=== PATIENT | female | born 1990 | race Two or more races ===

== ENCOUNTER 2016-05-01 01:19 | Emergency (ER) | payer OTHER ==
[2016-05-01 01:38] VITALS: BP 111/67; PULSE 72; TEMP 98.2; BMI 23.8
[2016-05-01 01:38] LABS: URINE APPEARANCE CLEAR; URINE BILIRUBIN NEGATIVE (NEGATIVE); URINE BLOOD NEGATIVE (NEGATIVE); URINE COLOR LTYELLOW; URINE GLUCOSE (UA) NEGATIVE (NEGATIVE); URINE KETONE NEGATIVE (NEGATIVE); URINE LEUK ESTERASE NEGATIVE (NEGATIVE); URINE NITRITE NEGATIVE (NEGATIVE); URINE PROTEIN NEGATIVE (NEGATIVE); URINE UROBILINOGEN 2.0 E.U/dl E.U./dl (0.2-1.0)
--- NOTE | 2016-05-01 02:12 | PDOC ---
History of Present Illness - General Chief Complaint: Injury Stated Complaint: FALL, BACK PAIN Time Seen by Provider: 05/01/16 01:31 History Source: Patient Exam Limitations: No Limitations - History of Present Illness Occurred: reports: this afternoon Pain Location: reports: none Method of Injury: Yes: fall Modifying Factors: improves with: rest Loss of Consciousness: no loss of consciousness Past History - Travel Traveled outside of the country in the last 30 days: No Close contact w/someone who was outside of country & ill: No - Past Medical History Allergies/Adverse Reactions: Allergies Allergy/AdvReac Type Severity Reaction Status Date / Time coconut oil Allergy Swelling Verified 05/01/16 01:30 No Known Drug Allergies Allergy Verified 05/01/16 01:30 Home Medications: Ambulatory Orders NK [No Known Home Medication] 01/11/16 Asthma: No Cancer: No Cardiac Disorders: No Diabetes: No HTN: No Seizures: No Thyroid Disease: No - Psycho/Social/Smoking Cessation Hx Anxiety: No Suicidal Ideation: No Smoking Status: No Smoking History: Never smoked Have you smoked in the past 12 months: No Number of Cigarettes Smoked Daily: 0 Hx Alcohol Use: No Drug/Substance Use Hx: No Substance Use Type: None Hx Substance Use Treatment: No Trauma Specific PMHX - Complaint Specific PMHX Back Injury: No Neck Injury: No Review of Systems - Review of Systems Able to Perform ROS?: Yes Comments:: 05/01/16 02:08 CONSTITUTIONAL: Absent: fever, chills, diaphoresis, generalized weakness, malaise, loss of appetite HEENT: Absent: rhinorrhea, nasal congestion, throat pain, throat swelling, difficulty swallowing, mouth swelling, ear pain, eye pain, visual Changes CARDIOVASCULAR: Absent: chest pain, loss of consciousness, palpitations, irregular heart rate, peripheral edema RESPIRATORY: Absent: cough, shortness of breath, dyspnea with exertion, orthopnea, wheezing, stridor, hemoptysis GASTROINTESTINAL: Absent: abdominal pain, abdominal distension, nausea, vomiting, diarrhea, constipation, melena, hematochezia GENITOURINARY: Absent: dysuria, frequency, urgency, hesitancy, hematuria, flank pain, genital pain MUSCULOSKELETAL: Left buttock pain Absent: myalgia, arthralgia, joint swelling SKIN: Absent: rash, itching, pallor HEMATOLOGIC/IMMUNOLOGIC: Absent: easy bleeding, easy bruising, lymphadenopathy, frequent infections ENDOCRINE: Absent: unexplained weight gain, unexplained weight loss, heat intolerance, cold intolerance NEUROLOGIC: Absent: headache, focal weakness or paresthesias, dizziness, unsteady gait, seizure, mental status changes, bladder or bowel incontinence PSYCHIATRIC: Absent: anxiety, depression, suicidal or homicidal ideation, hallucinations. Is the patient limited Polish proficient: No *Physical Exam - Vital Signs Last Vital Signs Temp Pulse Resp BP Pulse Ox 98.2 F 72 18 111/67 100 05/01/16 01:28 05/01/16 01:28 05/01/16 01:28 05/01/16 01:05/01/16 01:28 - Physical Exam Comments: 05/01/16 02:09 GENERAL: Well developed, well nourished. Awake and alert. No acute distress. HEENT: Normocephalic, atraumatic. PERRLA, EOMI. No conjunctival pallor. Sclera are non- icteric. Moist mucous membranes. Oropharynx is clear. NECK: Supple. Full ROM. No JVD. Carotid pulses 2+ and symmetric, without bruits. No thyromegaly. No lymphadenopathy. CARDIOVASCULAR: Regular rate and rhythm. No murmurs, rubs, or gallops. Distal pulses are 2+ and symmetric. PULMONARY: No evidence of respiratory distress. Lungs clear to auscultation bilaterally. No wheezing, rales or rhonchi. ABDOMINAL: Soft. Non-tender. Non-distended. No rebound or guarding. No organomegaly. Normoactive bowel sounds. MUSCULOSKELETAL Normal range of motion at all joints. No bony deformities or tenderness. No CVA tenderness. EXTREMITIES: No cyanosis. No clubbing. No edema. No calf tenderness. SKIN: Warm and dry. Normal capillary refill. No rashes. No jaundice. NEUROLOGICAL: Alert, awake, appropriate. Cranial nerves 2-12 intact. No deficits to light touch and temperature in face, upper extremities and lower extremities. No motor deficits in the in face, upper extremities and lower extremities. Normoreflexic in the upper and lower extremities. Normal speech. Toes are down- going bilaterally. Gait is normal without ataxia. PSYCHIATRIC: Cooperative. Good eye contact. Appropriate mood and affect. ED Treatment Course - ADDITIONAL ORDERS Additional order review: Laboratory Results 05/01/16 01:30 Urine Color Ltyellow Urine Appearance Clear Urine pH 5.0 Ur Specific [place] 1.025 Urine Protein Negative Urine Glucose (UA) Negative Urine Ketones Negative Urine Blood Negative Urine Nitrite Negative Urine Bilirubin Negative Urine Urobilinogen 2.0 e.u/dl H Ur Leukocyte Esterase Negative Urine HCG, Qual Negative Progress Note - Progress Note Progress Note: 26-year-old female presents to the emergency department with her mother complaining of pain to the left buttocks. Patient states earlier this afternoon , she slipped and fell, landed on her left buttock. Patient denies any head injuries, headache, dizziness, lightheadedness, neck pain, back pain, chest pain , shortness of breath, abdominal pains, extremity numbness or tingling sensation. Pain is exacerbated on touch and alleviated at rest. *DC/Admit/Observation/Transfer Diagnosis at time of Disposition: Contusion of buttock Qualifiers: Encounter type: initial encounter Qualified Code(s): S30.0XXA - Contusion of lower back and pelvis, initial encounter - Discharge Dispostion Disposition: HOME Condition at time of disposition: Stable - Patient Instructions Printed Discharge Instructions: DI for Contusion Additional Instructions: Rest Ice 20 mins on and 20 mins off for 48 hour as long as you're awake Take tylenol as needed for pain Return to the ER for severe/persistent/worsening symptoms - Post Discharge Activity Work/School Note: Back to Work
== END 2016-05-01 02:15 | disposition home or self-care (01) ==
LOC: JER 01:19
DX: S30.0XXA Contusion of lower back and pelvis, initial encounter (principal); W10.8XXA Fall (on) (from) other stairs and steps, initial encounter; Y92.522 Railway station as the place of occurrence of the external cause; Y99.8 Other external cause status; Y93.01 Activity, walking, marching and hiking
CPT/HCPCS: 81003; 84703; 99283-25

== ENCOUNTER 2017-07-27 20:24 | Emergency (ER) | payer OTHER ==
[2017-07-27 20:31] VITALS: BP 107/64; PULSE 65; TEMP 98.3; BMI 23.3
--- NOTE | 2017-07-27 20:51 | PDOC ---
History of Present Illness - General History Source: Patient Exam Limitations: No Limitations - History of Present Illness Initial Comments: 07/27/17 21:01 The patient is a 27 year old female who presents to the emergency department complaining of left knee pain beginning approximately 2 weeks ago. The patient reports falling down concrete stairs and landing on her knees. 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 The patient describes the pain as sharp and stabbing, ranked 6/10 in severity. She reports the pain is exacerbated through movement. The patient describes her knee as feeling "unstable". Of note, the patient describes the pain subsides to a severity of 3/ 10 when sitting down. The patient denies chest pain, shortness of breath, headache, and dizziness. Denies any other kinds of injury. PAST MEDICAL HISTORY: no significant history PAST SURGICAL HISTORY: no significant history FAMILY HISTORY: no pertinent history SOCIAL HISTORY: Pt lives with family and is employed. MEDICATIONS: reviewed ALLERGIES: As per nursing notes General: No fevers or chills, no weakness, no weight loss HEENT: No change in vision. No sore throat,. No ear pain CardioVascular: No chest pain or shortness of breath Respiratory:No cough, or wheezing. Gastrointestinal: no nausea, vomiting, diarrhea or constipation, No rectal bleeding Genitourinary: No dysuria, hematuria, or frequency Musculoskeletal: +Left knee pain. Neurologic: No headache, vertigo, dizziness or loss of consciousness Psychiatric: nor depression Skin: No rashes or easy bruising Endocrine: no increased thirst or abnormal weight change Allergic: no skin or latex allergy All other systems reviewed and normal GENERAL: The patient is awake, alert, and fully oriented, in no acute distress. HEAD: Normal with no signs of trauma. EYES: Pupils equal, round and reactive to light, extraocular movements intact, sclera anicteric, conjunctiva clear. EXTREMITIES: +Mild edema and tenderness with palpation to lateral aspect of left knee. Normal range of motion. +Neurovascular distals intact. +No bony tenderness. +No palpable joint effusion. NEUROLOGICAL: Normal speech, normal gait. PSYCH: Normal mood, normal affect. SKIN: Warm, Dry, normal turgor, no rashes or lesions noted. <Joanne Vital - Last Filed: 07/27/17 21:01> - General History Source: Patient Exam Limitations: No Limitations - History of Present Illness Initial Comments: A portion of this note was documented by scribe services under my direction. I have reviewed the details of the note, within reason, and agree with the documentation. The case summary and management plan written by me. 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 Patient injured her knee approximately 2 weeks ago after she went down a flight of stairs and landed on her knees. Patient has been having persistent pain in her left lateral knee since the injury and comes in now for evaluation. On my exam there was no bony tenderness however there was some lateral inflammation and tenderness of primarily of the ligaments of the knee. Patient was given referral to an orthopedist, given an Luis M wrap and told to take some anti-inflammatories. Patient discharged home <Mendel Retana I - Last Filed: 07/27/17 21:14> - General Chief Complaint: Pain Stated Complaint: LT KNEE PAIN Time Seen by Provider: 07/27/17 20:27 Past History <Joanne Vital - Last Filed: 07/27/17 21:01> - Past Medical History Asthma: No Cancer: No Cardiac Disorders: No COPD: No Diabetes: No HTN: No Seizures: No Thyroid Disease: No - Suicide/Smoking/Psychosocial Hx Smoking Status: No Smoking History: Never smoked Have you smoked in the past 12 months: No Number of Cigarettes Smoked Daily: 0 Hx Alcohol Use: No Drug/Substance Use Hx: No Substance Use Type: None Hx Substance Use Treatment: No <Mendel Retana I - Last Filed: 07/27/17 21:14> - Past Medical History Allergies/Adverse Reactions: Allergies Allergy/AdvReac Type Severity Reaction Status Date / Time coconut oil Allergy Swelling Verified 05/01/16 01:30 No Known Drug Allergies Allergy Verified 05/01/16 01:30 Home Medications: Ambulatory Orders NK [No Known Home Medication] 01/11/16 Trauma Specific PMHX - Complaint Specific PMHX Back Injury: No Neck Injury: No <Mendel Retana I - Last Filed: 07/27/17 21:14> *Physical Exam - Vital Signs Last Vital Signs Temp Pulse Resp BP Pulse Ox 98.3 F 65 16 107/64 100 07/27/17 20:28 07/27/17 20:28 07/27/17 20:28 07/27/17 20:28 07/27/17 20:28 <Joanne Vital - Last Filed: 07/27/17 21:01> - Vital Signs Last Vital Signs Temp Pulse Resp BP Pulse Ox 98.3 F 65 16 107/64 100 07/27/17 20:28 07/27/17 20:28 07/27/17 20:28 07/27/17 20:28 07/27/17 20:28 <Mendel Retana I - Last Filed: 07/27/17 21:14> *DC/Admit/Observation/Transfer - Attestations Scribe Attestion: 07/27/17 21:02 Documentation prepared by Joanne Vital, acting as bilingual medical receptionist for Mendel Retana MD. <Joanne Vital - Last Filed: 07/27/17 21:01> - Discharge Dispostion Admit: No <Mendel Retana I - Last Filed: 07/27/17 21:14> Diagnosis at time of Disposition: Strain of left knee Qualifiers: Encounter type: initial encounter Qualified Code(s): S86.912A - Strain of unspecified muscle(s) and tendon(s) at lower leg level, left leg, initial encounter - Discharge Dispostion Disposition: HOME Condition at time of disposition: Stable - Referrals Referrals: Virgilio Becerra MD [Primary Care Provider] - - Patient Instructions Additional Instructions: Take ibuprofen 2-3 tablets 3 times a day with food don't take on an empty stomach. Take this for the inflammation and pain Alternately you can take Naprosyn or Aleve 1-2 tablets twice a day with food. Wear the Luis M wrap while awake for additional support when ambulating Follow-up with Dr. Ruff at [phone] call him in the morning for an appointment. Return to the emergency department immediately with ANY new, persistent or worsening symptoms. Continue any medications as previously prescribed by your physician. You should follow up with your primary doctor as soon as possible regarding today's emergency department visit. . Please make sure your doctor reviews the results of your emergency evaluation. Thank you for coming to the Emergency Department today for your care. It was a pleasure to see you today. Please note that your evaluation is INCOMPLETE until you follow-up with your doctor. - Post Discharge Activity
== END 2017-07-27 21:14 | disposition home or self-care (01) ==
LOC: FER 20:24
DX: S86.912A Strain of unspecified muscle(s) and tendon(s) at lower leg level, left leg, initial encounter (principal); X58.XXXA Exposure to other specified factors, initial encounter; Y93.89 Activity, other specified; Y92.9 Unspecified place or not applicable
CPT/HCPCS: 99282-25

== ENCOUNTER 2022-04-13 08:52 | Emergency (ER) | payer OTHER ==
[2022-04-13 09:08] VITALS: RESP 18; TEMP 98; BMI 27.4
[2022-04-13 12:19] VITALS: BP 128/67; PULSE 84
== END 2022-04-13 12:45 | disposition home or self-care (01) ==
LOC: JER 08:52
DX: O98.513 Other viral diseases complicating pregnancy, third trimester (principal); J00 Acute nasopharyngitis [common cold]; H10.32 Unspecified acute conjunctivitis, left eye; Z3A.37 37 weeks gestation of pregnancy
CPT/HCPCS: 0241U-QW; 99283-25